=== PATIENT | male | born 1950 | race Caucasian/White ===

== ENCOUNTER 2018-02-20 16:37 | Observation (INO) | payer OTHER ==
--- NOTE | 2018-02-20 16:47 | ERPHSYRPT ---
- History of Present Illness Time Seen by Provider: 02/20/18 16:42 Historian: patient, family Exam Limitations: no limitations Physician History: The patient is a 67-year-old male with his complaining of a sudden onset of central chest pain that began about 1-1/2 hours ago while he was driving his car in the heat without air conditioning. The pain feels tight. It waxes and wanes. The right now he says it's bad. He is slightly nauseated. He denies shortness of breath. He denies sweating. His past medical history significant for CABG, CAD, cardiac stent, diabetes, hypertension, high cholesterol, and back pain. Timing/Duration: today, hour(s) (09 04/2) Activities at Onset: none Quality: tightness Location: substernal Chest Pain Radiation: no radiation Severity of Pain-Max: moderate Severity of Pain-Current: none Associated Symptoms: nausea Prior Chest Pain/Cardiac Workup: cardiac cath, stress test Nitro Today/Relief: 0.4 mg x 1, provided by ED Aspirin Treatment Today: 81 mg x 4, provided by ED Allergies/Adverse Reactions: No Known Drug Allergies Allergy (Unverified 02/20/18 16:49) - Review of Systems Constitutional: No Fever, No Chills Eyes: No Symptoms Ears, Nose, & Throat: No Symptoms Respiratory: No Cough, No Dyspnea Cardiac: Chest Pain Abdominal/Gastrointestinal: Nausea, No Abdominal Pain, No Vomiting, No Diarrhea Genitourinary Symptoms: No Dysuria Musculoskeletal: No Back Pain, No Neck Pain Skin: No Rash Neurological: No Dizziness, No Focal Weakness, No Sensory Changes Psychological: No Symptoms Endocrine: No Symptoms Hematologic/Lymphatic: No Symptoms Immunological/Allergic: No Symptoms All Other Systems: Reviewed and Negative - Nursing Vital Signs Nursing Vital Signs: Initial Vital Signs Temperature 98.4 F 02/20/18 16:37 Pulse Rate 73 02/20/18 16:37 Respiratory Rate 16 02/20/18 16:37 Blood Pressure 156/78 02/20/18 16:37 O2 Sat by Pulse Oximetry 98 02/20/18 16:37 Pain Scale Pain Intensity 5 - Physical Exam General Appearance: moderate distress Eye Exam: PERRL/EOMI, eyes nml inspection Ears, Nose, Throat Exam: normal ENT inspection, moist mucous membranes Neck Exam: normal inspection, non-tender, supple, full range of motion Respiratory Exam: normal breath sounds, lungs clear, No respiratory distress Cardiovascular Exam: regular rate/rhythm, normal heart sounds Gastrointestinal/Abdomen Exam: soft, No tenderness, No mass Rectal Exam: not done Back Exam: normal inspection, No CVA tenderness, No vertebral tenderness Extremity Exam: normal inspection, normal range of motion Neurologic Exam: alert, oriented x 3, cooperative, normal mood/affect, sensation nml, No motor deficits Skin Exam: normal color, warm, dry SpO2 Interpretation: normal Oxygen Delivery: Room Air - Course EKG Interpreted by Me: RATE, Sinus Rhythm, NORMAL AXIS, NORMAL INTERVALS, NORMAL QRS, NORMAL ST-T - Radiology Exams Chest X-ray Interpretation: Interpreted by me, Negative Ordered Tests: Active Orders 24 hr Category Date Time Status Forensic Scientist STAT Care 02/20/18 16:51 Active EKG-ER Only STAT Care 02/20/18 16:49 Active IV Insertion STAT Care 02/20/18 16:49 Active Oxygen-ED Only NASAL CANNULA 2 lpm Care 02/20/18 16:49 Active CHEST 2 VIEWS (PA AND LAT) Stat Exams 02/20/18 16:51 Completed CBC W DIFF Stat Lab 02/20/18 16:58 Completed CMP Stat Lab 02/20/18 16:58 Completed NT PRO BNP Stat Lab 02/20/18 16:58 Completed TROPONIN Q3H Lab 02/20/18 16:58 Completed TROPONIN Q3H Lab 02/20/18 20:00 Ordered TROPONIN Q3H Lab 02/20/18 23:00 Ordered TROPONIN Q3H Lab 02/21/18 02:00 Ordered TROPONIN Q3H Lab 02/21/18 05:00 Ordered Medication Summary Discontinued Medications Generic Name Dose Route Start Last Admin Trade Name Freq PRN Reason Stop Dose Admin Aspirin 324 mg 02/20/18 16:49 02/20/18 16:54 Baby Aspirin 81 Mg Chew PO 02/20/18 16:50 324 mg STAT ONE Administration Aspirin Confirm 02/20/18 16:54 Baby Aspirin 81 Mg Chew Administered 02/20/18 16:55 Dose 324 mg .ROUTE .STK-MED ONE Nitroglycerin 0.4 mg 02/20/18 16:49 02/20/18 16:53 Nitrostat 0.4 Mg (Ed) SL 02/20/18 16:50 0.4 mg STAT ONE Administration Nitroglycerin Confirm 02/20/18 16:54 Nitrostat 0.4 Mg (Ed) Administered 02/20/18 16:55 Dose 0.4 mg SL .STK-MED ONE Nitroglycerin 0.4 mg 02/20/18 17:13 02/20/18 17:33 Nitrostat 0.4 Mg (Ed) SL 02/20/18 17:14 0.4 mg STAT ONE Administration Ondansetron HCl 4 mg 02/20/18 16:49 02/20/18 16:54 Zofran 4 Mg/2 Ml Vial IV 02/20/18 16:50 4 mg STAT ONE Administration Ondansetron HCl Confirm 02/20/18 16:54 Zofran 4 Mg/2 Ml Vial Administered 02/20/18 16:55 Dose 4 mg .ROUTE .STK-MED ONE Lab/Rad Data: Laboratory Result Diagrams 02/20/18 16:58 02/20/18 16:58 Laboratory Results 02/20/18 02/20/18 02/20/18 Range/Units 16:58 16:58 16:58 WBC 13.0 H (4.0-10.5) K/mm3 RBC 4.12 (4.1-5.6) M/mm3 Hgb 12.7 (12.5-18.0) gm/dl Hct 37.1 L (42-50) % MCV 90.0 (78-100) fl MCH 30.8 (26-32) pg MCHC 34.2 (32-36) g/dl RDW 13.8 (11.5-14.0) % Plt Count 318 (150-450) K/mm3 MPV 9.8 H (6-9.5) fl Gran % 75.9 H (36.0-66.0) % Eos # (Auto) 0.19 (0-0.5) Absolute Lymphs (auto) 2.11 (1.0-4.6) Absolute Monos (auto) 0.79 (0.0-1.3) Lymphocytes % 16.3 L (24.0-44.0) % Monocytes % 6.1 (0.0-12.0) % Eosinophils % 1.5 (0.00-5.0) % Basophils % 0.2 (0.0-0.4) % Absolute Granulocytes 9.87 H (1.4-6.9) Basophils # 0.02 (0-0.4) Sodium 140 (137-145) mmol/L Potassium 4.0 (3.5-5.1) mmol/L Chloride 104 (98-107) mmol/L Carbon Dioxide 23 (22-30) mmol/L Anion Gap 17.5 H (5-15) MEQ/L BUN 17 (9-20) mg/dL Creatinine 1.38 H (0.66-1.25) mg/dL Estimated GFR 54.6 ML/MIN Glucose 94 (74-106) mg/dL Calcium 9.8 (8.4-10.2) mg/dL Total Bilirubin 1.00 (0.2-1.3) mg/dL AST 52 (17-59) U/L ALT 43 (0-50) U/L Alkaline Phosphatase 82 (38-126) U/L Troponin I < 0.012 (0.000-0.034) ng/mL NT-Pro-B Natriuret Pep 121 (0-900) pg/mL Serum Total Protein 7.3 (6.3-8.2) g/dL Albumin 4.4 (3.5-5.0) g/dL - Progress Progress: improved Air Movement: good Blood Culture(s) Obtained: No Antibiotics given: No Discussed with : Priscilla Will see patient in: hospital (observation) Counseled pt/family regarding: lab results, diagnosis, rad results - Departure Time of Disposition: 18:17 Departure Disposition: Observation (per Dr Wells) Clinical Impression: Chest pain Condition: Stable Critical Care Time: No Referrals: Provider,Unknown [Primary Care Provider] -
[2018-02-20] MEDS ORDERED: BABY ASPIRIN 81 MG CHEW PO ONE (16:49)
[2018-02-20] MEDS ORDERED: Nitrostat 0.4 MG (ED) SL ONE ×3 (16:49→17:13)
[2018-02-20] MEDS ORDERED: Zofran 4 MG/2 ML VIAL IV ONE (16:49)
[2018-02-20] MEDS ORDERED: Zofran 4 MG/2 ML VIAL ONE (16:54)
[2018-02-20] MEDS ORDERED: BABY ASPIRIN 81 MG CHEW ONE (16:54)
[2018-02-20 16:59] LABS: BASOPHIL % 0.2 % (0.0-0.4); Basophil (Absolute #) 0.02 (0-0.4); Eosinophil % 1.5 % (0.00-5.0); Eosinophil (Absolute #) 0.19 (0-0.5); Granulocyte Absolute (ANC) 9.87 (1.4-6.9); Granulocytes % 75.9 % (36.0-66.0); Hematocrit 37.1 % (42-50); Hemoglobin 12.7 gm/dl (12.5-18.0); Lymphocyte (Absolute #) 2.11 (1.0-4.6); Lymphocytes % 16.3 % (24.0-44.0); Mean Corpuscular Hemoglobin 30.8 pg (26-32); Mean Corpuscular Hgb Concent. 34.2 g/dl (32-36); Mean Platelet Volume 9.8 fl (6-9.5); Monocyte (Absolute #) 0.79 (0.0-1.3); Monocytes % 6.1 % (0.0-12.0); Platelet Count 318 K/mm3 (150-450); Red Blood Count 4.12 M/mm3 (4.1-5.6); Red Cell Distribution Width 13.8 % (11.5-14.0)
[2018-02-20 17:22] LABS: ALBUMIN 4.4 g/dL (3.5-5.0); ANION GAP 17.5 MEQ/L (5-15); Calcium 9.8 mg/dL (8.4-10.2); Creatinine 1 1.38 mg/dL (0.66-1.25); Total Protein 7.3 g/dL (6.3-8.2)
--- NOTE | 2018-02-20 17:25 | XRAY ---
Indication: Chest pain. Comparison: None PA/lateral chest slightly underinflated crowding the lung bases. Left base calcified granuloma. No focal infiltrate, consolidation, or large effusion. Heart is not enlarged with previous CABG surgery. Bony thorax intact with mild osteopenia and degenerative changes. Impression: Nonacute chest with chronic features.
[2018-02-20] MEDS ORDERED: TYLENOL 325 MG PO PRN (18:48)
[2018-02-20] MEDS ORDERED: MAALOX ES 30 ML UNIT DOSE PO PRN (18:48)
[2018-02-20] MEDS ORDERED: Zofran 4 MG/2 ML VIAL IV PRN (18:48)
[2018-02-20] MEDS ORDERED: MILK OF MAGNESIA 30 ML PO PRN (18:48)
[2018-02-20] MEDS ORDERED: Senokot-S Tablet PO PRN (18:48)
[2018-02-20] MEDS ORDERED: Glucophage 500 MG PO SCH (21:00)
[2018-02-20] MEDS ORDERED: ZOCOR 20MG PO SCH (22:00)
[2018-02-20] MEDS ORDERED: Zestril 5 MG PO SCH (22:00)
[2018-02-20] MEDS ORDERED: Cyclobenzaprine 10 MG PO SCH (22:00)
[2018-02-20] MEDS ORDERED: NovoLOG Insulin SQ SCH (22:00)
[2018-02-21] MEDS ORDERED: Cyclobenzaprine 10 MG PO PRN (02:00)
[2018-02-21 04:38] VITALS: O2SAT 97
[2018-02-21 05:59] LABS: Risk Ratio 3.6
[2018-02-21 07:27] VITALS: BP 141/71; PULSE 70
[2018-02-21] MEDS ORDERED: MEDICATION INTERVENTION MC SCH ×2 (07:45)
[2018-02-21] MEDS ORDERED: LIRAGLUTIDE 1.8 UNIT IJ SCH (08:00)
[2018-02-21] MEDS ORDERED: Glucophage 500 MG PO SCH (08:00)
[2018-02-21] MEDS ORDERED: NovoLOG Insulin SQ SCH ×3 (08:00→17:00)
--- NOTE | 2018-02-21 08:38 | PCM.SSS ---
History of Present Illness - Chief Complaint Chief Complaint: Chest Pain History of Present Illness: The patient is a 67-year-old male with his complaining of a sudden onset of central chest pain that began about 1-1/2 hours ago while he was driving his car in the heat without air conditioning. The pain feels tight. It waxes and wanes. The right now he says it's bad. He is slightly nauseated. He denies shortness of breath. He denies sweating. His past medical history significant for CABG, CAD, cardiac stent, diabetes, hypertension, high cholesterol, and back pain. Timing/Duration: today, hour(s) (09/05) Activities at Onset: none Quality: tightness Location: substernal Chest Pain Radiation: no radiation Severity of Pain-Max: moderate Severity of Pain-Current: none Associated Symptoms: nausea Prior Chest Pain/Cardiac Workup: cardiac cath, stress test Nitro Today/Relief: 0.4 mg x 1, provided by ED Aspirin Treatment Today: 81 mg x 4, provided by ED - Review of Systems Constitutional: No Fever, No Chills Eyes: No Symptoms Ears, Nose, & Throat: No Symptoms Respiratory: No Cough, No Short Of Breath Cardiac: No Chest Pain, No Edema, No Syncope Abdominal/Gastrointestinal: No Abdominal Pain, No Nausea, No Vomiting, No Diarrhea Genitourinary Symptoms: No Dysuria Musculoskeletal: No Back Pain, No Neck Pain Skin: No Rash Neurological: No Dizziness, No Focal Weakness, No Sensory Changes Psychological: No Symptoms Endocrine: No Symptoms Hematologic/Lymphatic: No Symptoms Immunological/Allergic: No Symptoms Medications & Allergies Home Medications: Home Medication List Aspirin EC 81 mg [Ecotrin 81 mg] 81 mg PO DAILY 02/20/18 [History Confirmed 02/20/18] Atorvastatin Calcium [Lipitor] 80 mg PO HS 02/20/18 [History Confirmed 02/20/18] Blood Sugar Diagnostic [Onetouch Verio] 1 stick TOP 5XD 02/20/18 [History Confirmed 02/20/18] Clopidogrel Bisulfate [Clopidogrel] 75 mg PO DAILY 02/20/18 [History Confirmed 02/20/18] Cyclobenzaprine HCl 10 mg [Cyclobenzaprine 10 MG] 10 mg PO TID PRN PRN [History Confirmed 02/21/18] Insulin Aspart [Novolog Flexpen] 52 unit SQ HS 02/20/18 [History Confirmed 02/20] Insulin Degludec [Tresiba Flextouch U-100] 56 unit SQ HS 02/20/18 [History Confirmed 02/20/18] Liraglutide [Victoza 2-Andres] 1.8 unit IJ BREAKFAST 02/20/18 [History Confirmed ] Lisinopril [Lisinopril] 5 mg PO HS 02/20/18 [History Confirmed 02/20/18] Metformin HCl [Metformin HCl] 500 mg PO BID 02/20/18 [History Confirmed 02/20/18 ] Metoprolol Succinate 25 mg Xl* [Toprol-Xl 25MG Tablets] 25 mg PO DAILY [History Confirmed 02/20/18] Omeprazole [Prilosec] 20 mg PO TID PRN 02/20/18 [History Confirmed 02/20/18] Tadalafil [Cialis] 5 mg PO DAILY 02/20/18 [History Confirmed 02/20/18] Allergies/Adverse Reactions: Allergies Allergy/AdvReac Type Severity Reaction Status Date / Time No Known Drug Allergies Allergy Unverified 02/20/18 16:49 - Past Medical History Past Medical History: Yes Neurological History: No Pertinent History ENT History: Cataracts Cardiac History: Angina, Congenital Heart Disease, High Cholesterol, Hypertension Respiratory History: No Pertinent History Endocrine Medical History: Diabetes Type II Musculoskelatal History: No Pertinent History GI Medical History: No Pertinent History History: No Pertinent History Pyscho-Social History: No Pertinent History Male Reproductive Disorders: Prostate Problems Comment: enlarged prostate - Past Surgical History Past Surgical History: Yes Neuro Surgical History: No Pertinent History Cardiac History: CABG, Cardiac Catheterization Respiratory Surgery: No Pertinent History GI Surgical History: No Pertinent History Genitourinary Surgical Hx: No Pertinent History Male Surgical History: No Pertinent History - Social History Smoking Status: Never smoker Exposure to second hand smoke: No Alcohol: None Drug Use: none - Physical Exam Vital Signs: Vital Signs - 24 hr Temp Pulse Pulse Resp BP Pulse Ox 02/21/18 07:26 98.4 F 70 18 141/71 97 02/21/18 07:10 95 02/21/18 04:00 97.9 F 72 19 114/66 97 02/21/18 00:56 98 02/21/18 00:00 98.4 F 74 18 123/61 98 02/20/18 20:44 98.4 F 75 18 127/58 99 02/20/18 18:28 77 16 102/61 94 L 02/20/18 17:12 73 18 132/64 98 02/20/18 16:44 68 02/20/18 16:37 98.4 F 73 16 156/78 98 Oxygen-Last 24 hours O2 Percentage 2 Liters = 28% O2 Percentage 2 Liters = 28% General Appearance: no apparent distress, alert Neurologic Exam: alert, oriented x 3, cooperative, normal mood/affect, nml cerebellar function, nml station & gait, sensation nml, No motor deficits Eye Exam: PERRL/EOMI, eyes nml inspection Ears, Nose, Throat Exam: normal ENT inspection, TMs normal, pharynx normal, moist mucous membranes Neck Exam: normal inspection, non-tender, supple, full range of motion Respiratory Exam: normal breath sounds, lungs clear, No respiratory distress Cardiovascular Exam: regular rate/rhythm, normal heart sounds, normal peripheral pulses Gastrointestinal/Abdomen Exam: soft, normal bowel sounds, No tenderness, No mass Back Exam: normal inspection, normal range of motion, No CVA tenderness, No vertebral tenderness Extremity Exam: normal inspection, normal range of motion, pelvis stable Skin Exam: normal color, warm, dry, No rash Lymphatic Exam: No adenopathy Results - Labs Lab/Micro Results: Accuchecks Date 02/21/18 Date 02/20/18 Time 03:40 Time 23:00 Accucheck Value: 111 Accucheck Value: 160 Lab Results-Last 24 Hours 02/20/18 02/20/18 02/21/18 Range/Units 20:17 23:27 02:13 Troponin I < 0.012 < 0.012 < 0.012 (0.000-0.034) ng/mL Triglycerides (30-150) mg/dL Cholesterol (50-200) mg/dL LDL Cholesterol (30-100) mg/dL HDL Cholesterol (40-60) mg/dL Heart Disease Risk Ratio 02/21/18 02/21/18 Range/Units 05:25 05:25 Troponin I < 0.012 (0.000-0.034) ng/mL Triglycerides 52 (30-150) mg/dL Cholesterol 91 (50-200) mg/dL LDL Cholesterol 46 (30-100) mg/dL HDL Cholesterol 25 L (40-60) mg/dL Heart Disease Risk Ratio 3.6 Accuchecks Date 02/21/18 Date 02/20/18 Time 03:40 Time 23:00 Accucheck Value: 111 Accucheck Value: 160 - Other Procedures and Tests Respiratory Therapy 02/21/18 00:56 Oxygen NASAL CANNULA 2 lpm 02/22/18 05:00 EKG ROUTINE 02/23/18 05:00 EKG ROUTINE 02/24/18 05:00 EKG ROUTINE Assessment/Plan (1) Chest pain Current Visit: Yes Status: Acute Qualifiers: Chest pain type: unspecified Qualified Code(s): R07.9 - Chest pain, unspecified Code(s): R07.9 - CHEST PAIN, UNSPECIFIED Hospital Summary - Hospital Course Hospital Course: Chief Complaint Diagnosis Chest Pain Allergies Allergy/AdvReac Type Severity Reaction Status Date / Time No Known Drug Allergies Allergy Unverified 02/20/18 16:49 Vital Signs (Last 24 hours) Temp Pulse Pulse Resp BP Pulse Ox 02/21/18 07:26 98.4 F 70 18 141/71 97 02/21/18 07:10 95 02/21/18 04:00 97.9 F 72 19 114/66 97 02/21/18 00:56 98 02/21/18 00:00 98.4 F 74 18 123/61 98 02/20/18 20:44 98.4 F 75 18 127/58 99 02/20/18 18:28 77 16 102/61 94 L 02/20/18 17:12 73 18 132/64 98 02/20/18 16:44 68 02/20/18 16:37 98.4 F 73 16 156/78 98 Home Medications Medication Instructions Recorded Confirmed Last Taken Type Aspirin EC 81 mg [Ecotrin 81 81 mg PO DAILY 02/20/18 02/20/18 02/20/18 History mg] Atorvastatin Calcium [Lipitor] 80 mg PO HS 02/20/18 02/20/18 Unknown History Blood Sugar Diagnostic [Onetouch 1 stick TOP 5XD 02/20/18 02/20/18 Unknown History Verio] Clopidogrel Bisulfate [Clopidogrel] 75 mg PO DAILY 02/20/18 02/20/18 Unknown History Cyclobenzaprine HCl 10 mg 10 mg PO TID PRN PRN 02/20/18 02/21/18 Unknown History [Cyclobenzaprine 10 MG] Insulin Aspart [Novolog Flexpen] 52 unit SQ HS 02/20/18 02/20/18 Unknown History Insulin Degludec [Tresiba 56 unit SQ HS 02/20/18 02/20/18 Unknown History Flextouch U-100] Liraglutide [Victoza 2-Andres] 1.8 unit IJ BREAKFAST 02/20/18 02/20/18 02/20/18 History Lisinopril [Lisinopril] 5 mg PO HS 02/20/18 02/20/18 Unknown History Metformin HCl [Metformin HCl] 500 mg PO BID 02/20/18 02/20/18 Unknown History Metoprolol Succinate 25 mg Xl* 25 mg PO DAILY 02/20/18 02/20/18 Unknown History [Toprol-Xl 25MG Tablets] Omeprazole [Prilosec] 20 mg PO TID PRN 02/20/18 02/20/18 02/20/18 History Tadalafil [Cialis] 5 mg PO DAILY 02/20/18 02/20/18 Unknown History Current Medications Generic Name Dose Route Start Last Admin Trade Name Freq PRN Reason Stop Dose Admin Acetaminophen 650 mg 02/20/18 18:48 Tylenol 325 Mg PO 03/22/18 18:47 Q4H PRN PRN PAIN AND/OR FEVER Al Hydrox/Mg Hydrox/Simethicone 30 ml 02/20/18 18:48 Maalox Es 30 Ml Unit Dose PO 03/22/18 18:47 Q4H PRN PRN INDIGESTION Aspirin 81 mg 02/21/18 10:00 Ecotrin 81 Mg PO 03/23/18 09:59 DAILY MARCELLA Clopidogrel Bisulfate 75 mg 02/21/18 10:00 Plavix 75 Mg Tablet PO 03/23/18 09:59 DAILY MARCELLA Cyclobenzaprine HCl 10 mg 02/21/18 02:00 Cyclobenzaprine 10 Mg PO 03/23/18 01:59 TIDPRN PRN Insulin Aspart 52 unit 02/20/18 22:00 02/20/18 22:50 Novolog Insulin SQ 03/22/18 21:59 Not Given HS [facility] Insulin Aspart 37 unit 02/21/18 08:00 Novolog Insulin SQ 03/23/18 07:59 BREAKFAST [facility] Insulin Aspart 40 unit 02/21/18 12:00 Novolog Insulin SQ 03/23/18 11:59 LUNCH [facility] Insulin Aspart 52 unit 02/21/18 17:00 Novolog Insulin SQ 03/23/18 16:59 DINNER [facility] Insulin Glargine 56 unit 02/21/18 22:00 Lantus Insulin SQ 03/23/18 21:59 HS [facility] Lisinopril 5 mg 02/20/18 22:00 02/20/18 22:48 Zestril 5 Mg PO 03/22/18 21:59 5 mg HS [facility] Administration Magnesium Hydroxide 30 - 60 ml 02/20/18 18:48 Milk Of Magnesia 30 Ml PO 03/22/18 18:47 QDP PRN CONSTIPATION Metformin HCl 500 mg 02/21/18 08:00 Glucophage 500 Mg PO 03/23/18 07:59 BID@0800,2200 [facility] Metoprolol Succinate 25 mg 02/21/18 10:00 Toprol-Xl 25mg Tablets PO 03/23/18 09:59 DAILY [facility] Miscellaneous Information 1 each 02/21/18 07:45 Medication Intervention 03/23/18 07:44 .RN TO CHECK WITH PT [facility] Miscellaneous Information 1 each 02/21/18 07:45 Medication Intervention 03/23/18 07:44 .RN TO CHECK WITH PT [facility] Ondansetron HCl 4 mg 02/20/18 18:48 Zofran 4 Mg/2 Ml Vial IV 03/22/18 18:47 Q4H PRN PRN NAUSEA/VOMITING Pantoprazole Sodium 40 mg 02/21/18 10:00 Protonix 40mg Tablet PO 03/23/18 09:59 DAILY [facility] Senna/Docusate Sodium 2 udtab 02/20/18 18:48 Senokot-S Tablet PO 03/22/18 18:47 BID PRN PRN CONSTIPATION Simvastatin 80 mg 02/20/18 22:00 02/20/18 22:48 Zocor 20mg PO 03/22/18 21:59 80 mg HS [facility] Administration Discontinued Medications Generic Name Dose Route Start Last Admin Trade Name Tu PRN Reason Stop Dose Admin Aspirin 324 mg 02/20/18 16:49 02/20/18 16:54 Baby Aspirin 81 Mg Chew PO 02/20/18 16:50 324 mg STAT ONE Administration Aspirin Confirm 02/20/18 16:54 Baby Aspirin 81 Mg Chew Administered 02/20/18 16:55 Dose 324 mg .ROUTE .STK-MED ONE Aspirin 325 mg 02/21/18 10:00 Ecotrin 325 Mg PO 03/23/18 09:59 DAILY MARCELLA Cyclobenzaprine HCl 10 mg 02/20/18 22:00 02/20/18 22:51 Cyclobenzaprine 10 Mg PO 03/22/18 21:59 Not Given TID MARCELLA Metformin HCl 500 mg 02/20/18 21:00 02/20/18 22:47 Glucophage 500 Mg PO 03/22/18 20:59 500 mg BIDWM [facility]CELL[facility] Administration Nitroglycerin 0.4 mg 02/20/18 16:49 02/20/18 16:53 Nitrostat 0.4 Mg (Ed) SL 02/20/18 16:50 0.4 mg STAT ONE Administration Nitroglycerin Confirm 02/20/18 16:54 Nitrostat 0.4 Mg (Ed) Administered 02/20/18 16:55 Dose 0.4 mg SL .STK-MED ONE Nitroglycerin 0.4 mg 02/20/18 17:13 02/20/18 17:33 Nitrostat 0.4 Mg (Ed) SL 02/20/18 17:14 0.4 mg STAT ONE Administration Ondansetron HCl 4 mg 02/20/18 16:49 02/20/18 16:54 Zofran 4 Mg/2 Ml Vial IV 02/20/18 16:50 4 mg STAT ONE Administration Ondansetron HCl Confirm 02/20/18 16:54 Zofran 4 Mg/2 Ml Vial Administered 02/20/18 16:55 Dose 4 mg .ROUTE .STK-MED ONE Intake & Output (Last 24 hours) 02/18/18 02/19/18 02/20/18 02/21/18 11:59 11:59 11:59 11:59 Intake Total 480 Output Total 900 Balance -420 Weight 114 kg Laboratory Results (Last 24 hours) 02/21/18 02/21/18 02/21/18 05:25 05:25 02:13 WBC RBC Hgb Hct MCV MCH MCHC RDW Plt Count MPV Gran % Eos # (Auto) Absolute Lymphs (auto) Absolute Monos (auto) Lymphocytes % Monocytes % Eosinophils % Basophils % Absolute Granulocytes Basophils # Sodium Potassium Chloride Carbon Dioxide Anion Gap BUN Creatinine Estimated GFR Glucose Calcium Total Bilirubin AST ALT Alkaline Phosphatase Troponin I < 0.012 < 0.012 NT-Pro-B Natriuret Pep Serum Total Protein Albumin Triglycerides 52 Cholesterol 91 LDL Cholesterol 46 HDL Cholesterol 25 L Heart Disease Risk Ratio 3.6 02/20/18 02/20/18 02/20/18 23:27 20:17 16:58 WBC RBC Hgb Hct MCV MCH MCHC RDW Plt Count MPV Gran % Eos # (Auto) Absolute Lymphs (auto) Absolute Monos (auto) Lymphocytes % Monocytes % Eosinophils % Basophils % Absolute Granulocytes Basophils # Sodium Potassium Chloride Carbon Dioxide Anion Gap BUN Creatinine Estimated GFR Glucose Calcium Total Bilirubin AST ALT Alkaline Phosphatase Troponin I < 0.012 < 0.012 < 0.012 NT-Pro-B Natriuret Pep Serum Total Protein Albumin Triglycerides Cholesterol LDL Cholesterol HDL Cholesterol Heart Disease Risk Ratio 02/20/18 02/20/18 16:58 16:58 WBC 13.0 H RBC 4.12 Hgb 12.7 Hct 37.1 L MCV 90.0 MCH 30.8 MCHC 34.2 RDW 13.8 Plt Count 318 MPV 9.8 H Gran % 75.9 H Eos # (Auto) 0.19 Absolute Lymphs (auto) 2.11 Absolute Monos (auto) 0.79 Lymphocytes % 16.3 L Monocytes % 6.1 Eosinophils % 1.5 Basophils % 0.2 Absolute Granulocytes 9.87 H Basophils # 0.02 Sodium 140 Potassium 4.0 Chloride 104 Carbon Dioxide 23 Anion Gap 17.5 H BUN 17 Creatinine 1.38 H Estimated GFR 54.6 Glucose 94 Calcium 9.8 Total Bilirubin 1.00 AST 52 ALT 43 Alkaline Phosphatase 82 Troponin I NT-Pro-B Natriuret Pep 121 Serum Total Protein 7.3 Albumin 4.4 Triglycerides Cholesterol LDL Cholesterol HDL Cholesterol Heart Disease Risk Ratio Orders (Last 24 hours) Category Date Time Status Bedrest with BRP/BSC ROUTINE Activity 02/20/18 18:48 Active Tub Chucker STAT Care 02/20/18 16:51 Active Code Status Order ROUTINE Care 02/20/18 18:48 Active EKG-ER Only STAT Care 02/20/18 16:49 Completed IV Care Q6H Care 02/20/18 18:48 Active IV Insertion STAT Care 02/20/18 16:49 Active Implement Chest Pain Pathway ROUTINE Care 02/20/18 18:48 Active Oxygen-ED Only NASAL CANNULA 2 lpm Care 02/20/18 16:[address] in Observation ROUTINE Care 02/20/18 18:48 Active Norris Simms, Apply ROUTINE Care 02/20/18 18:48 Active Telemetry ROUTINE Care 02/20/18 18:48 Active Weight,Daily 0600 Care 02/20/18 18:48 Active Nutritional Admission Screen once Diet 02/20/18 21:00 Active CHEST 2 VIEWS (PA AND LAT) Stat Exams 02/20/18 16:51 Completed CBC W DIFF Stat Lab 02/20/18 16:58 Completed CMP Stat Lab 02/20/18 16:58 Completed LIPID PROFILE AM.LAB Lab 02/21/18 05:25 Completed NT PRO BNP Stat Lab 02/20/18 16:58 Completed TROPONIN Q3H Lab 02/20/18 16:58 Completed TROPONIN Q3H Lab 02/20/18 20:17 Completed TROPONIN Q3H Lab 02/20/18 23:27 Completed TROPONIN Q3H Lab 02/21/18 02:13 Completed TROPONIN Q3H Lab 02/21/18 05:25 Completed Acetaminophen 325 mg [Tylenol 325 mg] Med 02/20/18 18:48 Active 650 mg PO Q4H PRN PRN Aspirin 81 gm Chew [Baby Aspirin 81 mg Chew] Med 02/20/18 16:54 Discontinued 324 mg .ROUTE .STK-MED ONE Aspirin 81 gm Chew [Baby Aspirin 81 mg Chew] Med 02/20/18 16:49 Discontinued 324 mg PO STAT ONE Aspirin EC 325 mg [Ecotrin 325 MG] Med 02/21/18 10:00 Discontinued 325 mg PO DAILY Aspirin EC 81 mg [Ecotrin 81 mg] Med 02/21/18 10:00 Active 81 mg PO DAILY Clopidogrel Bisulfate 75 mg [PLAVIX 75 MG Tablet] Med 02/21/18 10:00 Active 75 mg PO DAILY Cyclobenzaprine HCl 10 mg [Cyclobenzaprine 10 MG] Med 02/20/18 22:00 Discontinued 10 mg PO TID Cyclobenzaprine HCl 10 mg [Cyclobenzaprine 10 MG] Med 02/21/18 02:00 Active 10 mg PO TIDPRN PRN Insulin Aspart [NovoLOG Insulin] Med 02/21/18 08:00 Active 37 unit SQ BREAKFAST Insulin Aspart [NovoLOG Insulin] Med 02/21/18 12:00 Active 40 unit SQ LUNCH Insulin Aspart [NovoLOG Insulin] Med 02/21/18 17:00 Active 52 unit SQ DINNER Insulin Aspart [NovoLOG Insulin] Med 02/20/18 22:00 Active 52 unit SQ HS Insulin Glargine [Lantus Insulin] Med 02/21/18 22:00 Active 56 unit SQ HS Lisinopril 5 mg [Zestril 5 MG] Med 02/20/18 22:00 Active 5 mg PO HS Mag Hydrox/Al Hydrox/Simeth [Maalox Es 30 ml Unit Med 02/20/18 18:48 Active Dose] 30 ml PO Q4H PRN PRN Magnesium Hydroxide 30 ml [Milk of Magnesia 30 ml Med 02/20/18 18:48 Active ] 30 - 60 ml PO QDP PRN Medication Intervention Med 02/21/18 07:45 Active 1 each MC .RN TO CHECK WITH PT Medication Intervention Med 02/21/18 07:45 Active 1 each MC .RN TO CHECK WITH PT Metformin HCl 500 mg [Glucophage 500 MG] Med 02/21/18 08:00 Active 500 mg PO BID@0800,2200 Metformin HCl 500 mg [Glucophage 500 MG] Med 02/20/18 21:00 Discontinued 500 mg PO BIDWM Metoprolol Succinate 25 mg Xl* [Toprol-Xl 25MG Tablets* Med 02/21/18 10:00 Active ] 25 mg PO DAILY Nitroglycerin 0.4 mg (Ed) [Nitrostat 0.4 MG (ED)] Med 02/20/18 16:54 Discontinued 0.4 mg SL .STK-MED ONE Nitroglycerin 0.4 mg (Ed) [Nitrostat 0.4 MG (ED)] Med 02/20/18 16:49 Discontinued 0.4 mg SL STAT ONE Nitroglycerin 0.4 mg (Ed) [Nitrostat 0.4 MG (ED)] Med 02/20/18 17:13 Discontinued 0.4 mg SL STAT ONE Ondansetron HCl 4 mg/2 ml [Zofran 4 MG/2 ML VIAL] Med 02/20/18 16:54 Discontinued 4 mg .ROUTE .STK-MED ONE Ondansetron HCl 4 mg/2 ml [Zofran 4 MG/2 ML VIAL] Med 02/20/18 18:48 Active 4 mg IV Q4H PRN PRN Ondansetron HCl 4 mg/2 ml [Zofran 4 MG/2 ML VIAL] Med 02/20/18 16:49 Discontinued 4 mg IV STAT ONE PANTOPRAZOLE 40 mg Tablet [Protonix 40MG Tablet] Med 02/21/18 10:00 Active 40 mg PO DAILY Senna/Docusate Sodium Tab [Senokot-S Tablet] Med 02/20/18 18:48 Active 2 udtab PO BID PRN PRN Simvastatin 20Mg [Zocor 20Mg] Med 02/20/18 22:00 Active 80 mg PO HS EKG ROUTINE RT 02/21/18 00:40 Completed EKG ROUTINE RT 02/22/18 05:00 Active EKG ROUTINE RT 02/23/18 05:00 Active EKG ROUTINE RT 02/24/18 05:00 Active Oxygen NASAL CANNULA 2 lpm RT 02/21/18 00:56 Active Pulse Oximetry Q4H RT 02/20/18 18:48 Active - Vitals & Intake/Output Vital Signs: Vital Signs Temperature 98.4 F 02/21/18 07:26 Pulse Rate 70 02/21/18 07:26 Respiratory Rate 18 02/21/18 07:26 Blood Pressure 141/71 02/21/18 07:26 O2 Sat by Pulse Oximetry 97 02/21/18 07:26 Oxygen-Last Documented O2 Percentage 2 Liters = 28% Intake & Output: Intake & Output 02/18/18 02/19/18 02/20/18 02/21/18 11:59 11:59 11:59 11:59 Intake Total 480 Output Total 900 Balance -420 Weight 114 kg - Lab Result Diagrams: 02/20/18 16:58 02/20/18 16:58 Lab Results-Last 24 Hrs: Accuchecks Date 02/21/18 Date 02/20/18 Time 03:40 Time 23:00 Accucheck Value: 111 Accucheck Value: 160 Lab Results-Last 24 Hours 02/20/18 02/20/18 02/21/18 Range/Units 20:17 23:27 02:13 Troponin I < 0.012 < 0.012 < 0.012 (0.000-0.034) ng/mL Triglycerides (30-150) mg/dL Cholesterol (50-200) mg/dL LDL Cholesterol (30-100) mg/dL HDL Cholesterol (40-60) mg/dL Heart Disease Risk Ratio 02/21/18 02/21/18 Range/Units 05:25 05:25 Troponin I < 0.012 (0.000-0.034) ng/mL Triglycerides 52 (30-150) mg/dL Cholesterol 91 (50-200) mg/dL LDL Cholesterol 46 (30-100) mg/dL HDL Cholesterol 25 L (40-60) mg/dL Heart Disease Risk Ratio 3.6 Micro Results-Entire Visit: Accuchecks Date 02/21/18 Date 02/20/18 Time 03:40 Time 23:00 Accucheck Value: 111 Accucheck Value: 160 - Procedures and Test Procedures and Tests throughout Hospitalization: Therapy Orders & Screens 02/21/18 00:40 EKG ROUTINE Comment: Diagnosis: chest pain 02/21/18 00:56 Oxygen NASAL CANNULA 2 lpm Comment: Diagnosis: Chest Pain 02/22/18 05:00 EKG ROUTINE Comment: Diagnosis: chest pain 02/23/18 05:00 EKG ROUTINE Comment: Diagnosis: chest pain 02/24/18 05:00 EKG ROUTINE Comment: Diagnosis: chest pain - Discharge Discharge Date: 02/21/18 Disposition: Home, Self-Care Condition: Stable Prescriptions: No Action Tadalafil [Cialis] 5 mg PO DAILY Omeprazole [Prilosec] 20 mg PO TID PRN PRN Reason: Indigestion Metoprolol Succinate 25 mg Xl* [Toprol-Xl 25MG Tablets] 25 mg PO DAILY Metformin HCl [Metformin HCl] 500 mg PO BID Lisinopril [Lisinopril] 5 mg PO HS Insulin Degludec [Tresiba Flextouch U-100] 56 unit SQ HS Cyclobenzaprine HCl 10 mg [Cyclobenzaprine 10 MG] 10 mg PO TID PRN PRN PRN Reason: Muscle Aches Clopidogrel Bisulfate [Clopidogrel] 75 mg PO DAILY Blood Sugar Diagnostic [Onetouch Verio] 1 stick TOP 5XD Atorvastatin Calcium [Lipitor] 80 mg PO HS Insulin Aspart [Novolog Flexpen] 52 unit SQ HS Aspirin EC 81 mg [Ecotrin 81 mg] 81 mg PO DAILY Liraglutide [Victoza 2-Andres] 1.8 unit IJ BREAKFAST Follow up with: Provider,Unknown [Primary Care Provider] - 1 Week
[2018-02-21] MEDS ORDERED: PLAVIX 75 MG Tablet PO SCH (10:00)
[2018-02-21] MEDS ORDERED: TADALAFIL 5 MG PO SCH (10:00)
[2018-02-21] MEDS ORDERED: Protonix 40MG Tablet PO SCH (10:00)
[2018-02-21] MEDS ORDERED: ECOTRIN 81 MG PO SCH (10:00)
[2018-02-21] MEDS ORDERED: Ecotrin 325 MG PO SCH (10:00)
[2018-02-21] MEDS ORDERED: Toprol-Xl 25MG Tablets PO SCH (10:00)
[2018-02-21] MEDS ORDERED: INSULIN DEGLUDEC 56 UNIT SQ SCH (22:00)
[2018-02-21] MEDS ORDERED: Lantus Insulin SQ SCH (22:00)
== END 2018-02-21 09:20 | disposition home or self-care (01) ==
LOC: ED 16:37 → MED SURG 18:40
PROVIDERS: ADMIT General Practice; ATTEND General Practice
DX: R07.9 Chest pain, unspecified (principal); I25.810 Atherosclerosis of coronary artery bypass graft(s) without angina pectoris; E11.9 Type 2 diabetes mellitus without complications; I10 Essential (primary) hypertension; E78.00 Pure hypercholesterolemia, unspecified; M54.9 Dorsalgia, unspecified
CPT/HCPCS: 36000; 36415; 71046; 80053; 80061; 83721; 83880; 84484; 85025; 93005; 93041; 93268; 94760; 96374; 99285; J2405; A9270-GY; G0378